=== PATIENT | female | born 1980 | race Caucasian/White ===

== ENCOUNTER 2023-03-22 15:27 | Emergency (ER) | payer BC, SELFPAY ==
[2023-03-22 15:42] VITALS: BP 158/94; PULSE 85; RESP 16; TEMP 36.1; O2SAT 100; BMI 25.8
--- NOTE | 2023-03-22 15:58 | CRLHL7_ITS ---
For Patients: As a result of the Cures Act, medical imaging exams and procedure reports are released immediately into your electronic medical record. You may view this report before your referring provider. If you have questions, please contact your health care provider. INDICATION: Back pain and hip pain TECHNIQUE: X-rays lumbar spine, four views COMPARISON: None. FINDINGS: There is normal lumbar lordosis. The vertebral body heights are maintained and in good alignment. No change in alignment between the flexion extension views. There is a well corticated osseous fragment at the anterior superior corner of the L1 vertebral body which appears chronic. Disc spaces are preserved. No acute abnormality. IMPRESSION: No acute radiographic abnormality. Dictated by Phoebe Mueller MD @ 03/22/2023 5:36:50 PM Dictated by: Phoebe Mueller MD @ 03/22/2023 17:36:59 (Electronically Signed)
--- NOTE | 2023-03-22 15:58 | CRLHL7_ITS ---
For Patients: As a result of the Cures Act, medical imaging exams and procedure reports are released immediately into your electronic medical record. You may view this report before your referring provider. If you have questions, please contact your health care provider. INDICATION: Back pain, left hip pain TECHNIQUE: X-ray left hip, two views of the single-view pelvis COMPARISON: None FINDINGS: Alignment is normal. Negative for acute fracture or dislocation. Femoral heads are well-formed. Joint spaces are preserved. Overlying soft tissues unremarkable. No radiopaque foreign body is seen. Phleboliths within the pelvis. IMPRESSION: Unremarkable radiographs of the left hip and pelvis. Dictated by Phoebe Mueller MD @ 03/22/2023 5:35:11 PM Dictated by: Phoebe Mueller MD @ 03/22/2023 17:35:21 (Electronically Signed)
--- NOTE | 2023-03-22 16:28 | ED.GENADULT ---
HPI - General Adult General Chief complaint: Back Injury/Pain Stated complaint: Back injury Time Seen by Provider: 03/22/23 15:41 Source: patient Mode of arrival: ambulatory Limitations: no limitations History of Present Illness HPI narrative: Patient is a 42-year-old female with no pertinent medical problems presenting to emergency department for back pain. She states earlier today around noon she was bending over when she felt a pop in her back. States since then she has been having no amount of pain on the left side of her back going into her left hip. She states she has been able ambulate but since been more of a shuffling gait. Denies loss of bowel or bladder control, denies saddle anesthesia, denies fevers, denies IV drug use. Patient states she is insert her thoracic spine in the past but has never hurt her lumbar spine. Does note while she was walking down steps last weeks she hurt she felt similar sensation in her left hip. She is unsure of these are related. Related Data Home Medications Medication Instructions Recorded Confirmed ivermectin 1 % topical cream applic topical 03/22/23 sertraline 100 mg tablet 100 mg PO DAILY 03/22/23 03/22/23 Previous Rx's Medication Instructions Recorded cyclobenzaprine 10 mg tablet 10 mg PO TID PRN muscle spasm #14 03/22/23 tabs Allergies Allergy/AdvReac Type Severity Reaction Status Date / Time surgical glue Allergy Intermediate Rash Uncoded 03/22/23 15:37 Review of Systems Status of ROS: Reports: 6 or more systems reviewed and unremarkable except as noted in History and below PFS PFS Social History Smoking Status: Former smoker How often do you have a drink containing alcohol: monthly or less AUDIT-C Alcohol total score: 1 Non-prescribed substance use: denies use Exam Narrative: Exam Narrative: Const: Well-nourished, Well-developed, in mild distress Eyes: PERRL, no conjunctival injection, and symmetrical lids ENMT: Atraumatic external nose and ears. Moist mucous membranes. MSK:Extremities w/o deformity, Normal Active ROM, tenderness to palpation left back throughout the paraspinal muscles. Negative straight leg test Skin: Warm, Dry. No rashes or lesions. Neuro: Normal Muscle tone, No focal neurological deficits. Psych: Awake, Alert, & Oriented x3. Appropriate mood and affect. Const: Vital Signs, click to edit/add: Vital Signs - 24 hr 03/22/23 15:42 Temperature 97.0 F L Pulse Rate [Right Pulse Oximeter] 85 Respiratory Rate 16 Blood Pressure [Ri ght Upper Arm] 158/94 H Pulse Oximetry 100 Oxygen Delivery Me thod Room Air Course Vital Signs Vital signs: Initial Vital Signs Temperature 97.0 F L 03/22/23 15:42 Temperature Source Temporal Artery Scan 03/22/23 15:42 Pulse Rate 85 03/22/23 15:42 Pulse Rhythm Regular 03/22/23 15:42 Respiratory Rate 16 03/22/23 15:42 Blood Pressure 158/94 H 03/22/23 15:42 Blood Pressure Mean 115 H 03/22/23 15:42 Blood Pressure Position Sitting 03/22/23 15:42 Pulse Oximetry 100 03/22/23 15:42 Oxygen Delivery Method Room Air 03/22/23 15:42 Vital Signs Temperature 97.0 F L 03/22/23 15:42 Pulse Rate 85 03/22/23 15:42 Respiratory Rate 16 03/22/23 15:42 Blood Pressure 158/94 H 03/22/23 15:42 Pulse Oximetry 100 03/22/23 15:42 Oxygen Delivery Method Room Air 03/22/23 15:42 Temperature 97.0 F L 03/22/23 15:42 Pulse Rate 85 03/22/23 15:42 Respiratory Rate 16 03/22/23 15:42 Blood Pressure 158/94 H 03/22/23 15:42 Pulse Oximetry 100 03/22/23 15:42 Oxygen Delivery Method Room Air 03/22/23 15:42 Medical Decision Making MDM Narrative Medical decision making narrative: Patient is a 42-year-old female presenting to emergency department for left lower back pain and hip pain. She says she heard a pop in her back while she was at work and bending over. The pain started immediately after this. She also notes she did also hurt her hip earlier last week. She denies ever having low back issues in the past but has run out her thoracic region couple times before. After pain medicine initially she said she did not want any case she took ibuprofen at home and an old muscle relaxer that was 3 years old. Her x-ray of her lumbar spine and left hip. They returned showing no concerning abnormalities. Patient had normal straight leg test making a herniated disc unlikely plus the pain is more in the paraspinal area. Pain started right after she heard the pop involve bending over and unlikely to be from a kidney stone. I do not believe she needs a CT scan at this time. She was started after pain medication and states she does not want any narcotics so Toradol was given. I spoke to her about her diagnosis of likely lumbar strain. I informed her to take Tylenol and ibuprofen for pain and use ice. She can be discharged home and she agrees with this plan Differential Diagnosis Differential Diagnosis: Muscle strain, fracture, nephrolithiasis, herniated disc Discharge Plan Discharge Clinical Impression: Strain of lumbar region Patient Disposition: Home, Self-Care Condition: Stable Instructions: Back Pain (ED) Additional Instructions: Follow-up with the primary care provider. Take Tylenol ibuprofen for pain along with the muscle relaxant prescribed. Return for new or worsening symptoms. Also use ice for pain management Prescriptions: New cyclobenzaprine 10 mg tablet 10 mg PO TID PRN (Reason: muscle spasm) Qty: 14 0RF No Action sertraline 100 mg tablet 100 mg PO DAILY ivermectin 1 % cream topical Follow Up/Referrals: Joan Mccoy PA-C [Primary Care Provider] - Stand Alone Forms: [employer] Info Instructions
[2023-03-22] MEDS: KETOROLAC 30 MG/ML inj IM (18:15)
== END 2023-03-22 18:51 | disposition home or self-care (01) ==
PROVIDERS: Emergency Provider Student in an Organized Health Care Education/Training Program; PCP Physician Assistant Medical
DX: S39.012A Strain of muscle, fascia and tendon of lower back, initial encounter (principal); X50.1XXA Overexertion from prolonged static or awkward postures, initial encounter
CPT/HCPCS: 72110; 73502; 96372; 99282; 99283; J1885

== ENCOUNTER 2024-02-16 09:41 | Outpatient (CLI) | payer BC, SELFPAY | END 2024-02-16 09:42 | disposition home or self-care (01) | PROVIDERS: PCP Physician Assistant Medical; Visit Provider Obstetrics & Gynecology | DX: N92.0 Excessive and frequent menstruation with regular cycle (principal) | CPT/HCPCS: 84146; 84439; 84443 ==

== ENCOUNTER 2024-03-16 10:40 | Outpatient (CLI) | payer BC, SELFPAY ==
--- NOTE | 2024-03-16 10:45 | CRLHL7_ITS ---
For Patients: As a result of the Century Cures Act, medical imaging exams and procedure reports are released immediately into your electronic medical record. You may view this report before your referring provider. If you have questions, please contact your health care provider. INDICATION: Excessive and frequent menstruation COMPARISON: none TECHNIQUE: 2D manjarrez scale and color Doppler images were acquired of the pelvis using a transvaginal approach as the bladder was not distended. FINDINGS: Sonographic images demonstrate a normal size and smooth outer contour of the uterus. Uterus measures 8.0 cm in length by 5.1 cm in AP diameter by 6.5 cm in transverse dimension. The myometrium has a normal uniform echotexture. 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 There is a focal nodular area of increased echotexture within the endometrium measuring 14 x 10 x 13 millimeters. This contains internal blood flow. The right ovary measures 2.2 x 1.3 x 1.6 cm in size and the left ovary measures 2.7 x 1.4 x 3.1 cm. The ovaries demonstrate normal arterial and venous blood flow on color Doppler analysis. There are no suspicious fluid collections within the cul-de-sac. IMPRESSION: Endometrial polyp appears to be present measuring 1.4 cm. Endometrial thickness 15 millimeters Dictated by Herman Ghotra MD @ 03/17/2024 7:24:05 AM (Electronically Signed)
== END 2024-03-16 10:41 | disposition home or self-care (01) ==
LOC: US 10:41
PROVIDERS: PCP Physician Assistant Medical; Visit Provider Obstetrics & Gynecology
DX: N92.0 Excessive and frequent menstruation with regular cycle (principal); N84.0 Polyp of corpus uteri; R93.89 Abnormal findings on diagnostic imaging of other specified body structures
CPT/HCPCS: 76830

== ENCOUNTER 2024-05-06 06:08 | Day surgery (SDC) | payer BC, SELFPAY ==
--- OUTSIDE RECORDS SUMMARY | 2024-05-06 06:12 | XMS_ITS | Clinical Summary ---
Author Organization [facility] Address [place], [place] [address] Care Team Providers Care Labor Specialist Name Role Phone Joan Mccoy Primary Care Provider Allergies No known active allergies Medications Medication Sig Dispensed Refills Start Date End Date Status clonazePAM (KLONOPIN) 0.5 mg tabletIndication s:Anxiety Take 1 Tablet (0.5 mg) by mouth at bedtime. 30 Tablet 04/10/2021 Active Additional Information Patient taking differently:0.5 mg OralBEDTIME PRN, Anxiety, Reported on 03/22/2024 tiZANidine (ZANAFLEX) 4 mg tabletIndication s:Acute bilateral thoracic back pain TAKE 1 TABLET(4 MG) BY MOUTH EVERY 6 HOURS NEEDED FOR MUSCLE SPASM 20 Tablet 03/26/2024 Active sertraline (ZOLOFT) 100 mg tabletIndication s:Anxiety TAKE 1 TABLET(100 MG) BY MOUTH EVERY MORNING 90 Tablet 04/20/2024 Active sertraline (ZOLOFT) 100 mg tabletIndication s:Anxiety TAKE 1 TABLET(100 MG) BY MOUTH EVERY MORNING 30 Tablet 03/21/2024 4 Discontinued Active Problems Problem Noted Date Diagnosed Date Pap smear of cervix with ASCUS, cannot exclude H GSIL 11/28/2021 Overview: 11/28/2021 ASC-H/HPV negative. 12/2021 colposcopy: suggestive of KALA I 12/2022 ASCUS/HPV negative Plan: Pap/HPV due 12/2023 Controlled substance agreement signed 03/19/2017 Overview: 02/08/[address] Maximo Butler psychiatry/hc Allergic rhinitis 05/24/2013 Major depressive disorder, single episode, unspe cified 06/18/2007 Obsessive-compulsive disorders 06/18/2007 Encounters Date Type Department Care Team Description 04/28/2024 8:15 AM CDT Preop Visit [facility] [address] [place] [address] Akosua Pradhan MD Preoperative Exam (DOS-05/06-Uterine polyp removed/[facility]-Dr Wheeler//) 04/28/2024 Travel 04/18/2024 Refill [facility] [address] [place] [address] Joan Mccoy PA Refill Request (Sertraline) 03/26/2024 Refill [facility] [address] [place] [address] Jaylin Rodriguez PA Refill Request (Tizanidine) 03/24/2024 Refill [facility] [address] [place] [address] Jaylin Rodriguez PA Refill Request (Tizanidine) 03/22/2024 1:15 PM CDT Office Visit [facility] [address] [place] [address] Jaylin Rodriguez PA Back Pain (Picked up a water bucket last Friday and her back has been hurting since) 03/22/2024 Travel 03/19/2024 Refill [facility] [address] [place] [address] Joan Mccoy PA Refill Request (Sertraline) 03/16/2024 Orders Only [facility] Scanner 1 scan: (1-Ord) [place], PELVIC TRANSVAGINAL, 03/16/2024 02/16/2024 Lab Requisition [facility] [phone] Liam, Rose Badillo MD from Last 3 Months Immunizations Name Administration Dates Next Due COVID-19 vaccine (Pfizer-Bio NTech 30mcg/0.3mL) PF, MDV 01/10/2021 Influenza A (H1N1), Inactiva teresita (Age >=3 Years) 07/05/2009 Influenza, IIV3 (Age >=3 years) 06/18/2006 Influenza, IIV4 06/08/2021,06/09/2020,10/12/2019 Tdap 04/18/2016 Family History Medical History Relation Name Comments ADD / ADHD Daughter Diabetes type I Daughter age 6 yo No Known Problems Father ADD / ADHD Mother Alcoholism Mother Drug Abuse Mother crack cocaine Cancer-breast Paternal Grandmother ADD / ADHD Son Autism Son Anesthesia Malignant Hyperthermia No Family History Blood Disease No Family History Cancer-ovarian No Family History Relation Name Status Comments Daughter Alive Father Mother Paternal Grandmother Son Alive Social History Tobacco Use Types Packs/Day Years Used Date Smoking Tobacco: Former Cigarettes Q uit: 12/07/2004 Smokeless Tobacco: Never Tobacco Cessation:Counseling Given: Yes Alcohol Use Standard Drinks/Week Comments Yes 0 (1 standard drink = 0.6 oz pur e alcohol) glass of wine weekly PHQ-2 Answer Date Recorded PHQ-2 TOTAL SCORE 0 12/24/2022 Social Connections Answer Date Recorded Frequency of Communication with Friends and Fami ly 0 03/22/2024 Alcohol Use Answer Date Recorded How often do you have a drink containing alcohol ? 2 03/22/2024 How many drinks containing a lcohol do you have on a typical day when you are drinking? 0 03/22/2024 How often do you have five or more drinks on one occasion? 0 03/22/2024 Financial Resource Strain Answer Date R ecorded Difficulty of Paying Living Expenses 3 03/22/2024 Difficulty of Paying Living Expenses Not on file 03/22/2024 Food Insecurity Answer Date Recorded Worried About Running Out of Food in the Last Ye ar 1 03/22/2024 Transportation Needs Answer Date Record ed Lack of Transportation (Medical) 1 03/22/2024 Housing Stability Answer Date Recorded Unable to Pay for Housing in the Last Year 1 03/22/2024 Sex and Gender Information Value Date Recorded Sex Assigned at Female 06/02/2023 7:28 PM CDT Gender Identity Female 06/02/2023 7:28 PM CDT Sexual Orientation Straight 06/02/2023 7: 28 PM CDT Obstetrics History Last Filed Vital Signs Vital Sign Reading Time Taken Comments Blood Pressure 117/83 04/28/2024 8:22 AM CDT Pulse 87 04/28/2024 8:22 AM CDT Temperature 36.6 ??C (97.8 ??F) 04/28/2024 8:22 AM CD T Respiratory Rate 14 06/06/2023 10:13 AM CDT Oxygen Saturation 98% 04/28/2024 8:22 AM CDT Inhaled Oxygen Concentration - - Weight 84.6 kg (186 lb 9.6 oz) 04/28/2024 8:22 A M CDT Height 172.1 cm (5' 7.75) 04/28/2024 8:22 AM CD T Body Mass Index 28.58 04/28/2024 8:22 AM CDT Plan of Treatment Health Maintenance Due Date Last Done Comments COVID-19 vaccine series (2022- season) 2023 05/18/2022, 08/16/2021, 01/10/2021, Additional history exists Mammogram for age 45-75 12/18/2023 12/18/19, 11/28/2021, 04/27/2020, Additional history exists Depression screening for age 12+ 12/25/2023 12/24/2022, 12/24/2022, 11/28/2021, Additional history exists Influenza for age 9-49 05/09/2024 , 06/09/2020, 10/12/2019, Additional history exists Pap test for age 21-65 02/15/2025 4, 02/16/2024, 12/24/2022, Additional history exists BMI (ht and wt on same day) for age 18+ 04/28/2025 04/28/2024, 12/24/2022, 11/28/2021, Additional history exists Tetanus booster 04/18/2026 04/18/2016 Lipids for age 45-75 09/23/2027 09/23/2022, 11/28/2021, 08/13/2018, Additional history exists Colonoscopy through age 75 06/06/203306/06, 06/06/2023, 06/06/2023 Tdap Completed 04/18/2016 HIV for age 15-65 Completed 12/24/2022 Hepatitis C screening for age 18-79 Completed 12/24/2022 Pneumococcal series for age 6-64 Aged Out No longer eligible based on patient's age to complete this topic Procedures Procedure Name Priority Date/Time Associated Diagnosis Comments SCAN-ULTRASOUND REPORT 03/16/2024 12:00 AM CDT LAB TRACKING EVENT Routine 02/16/2024 12 :00 PM CDT SALES VENDOR THIN PREP PAP SCREEN IMAGED Routine 02/16/2024 10:00 AM CDT HPV THIN PREP Routine 02/16/2024 10:00 AM CDT COLONOSCOPY SCREENING Routine 06/06/2023 8:45 AM CDT Screening for colon cancer LC HIV-1/O/2, 4TH GENERATION Routine 12/24/2022 9:42 AM CDT Encounter for screening for HIV LC HCV ANTIBODY RFX TO QUANT PCR Routine 12/24/2022 9:42 AM CDT Need for hepatitis C screening test XR MAMMO JULIUS BILAT SCREEN Routine 12/17/2022 8:51 AM CDT Visit for screening mammogram LC LIPID PANEL AND CHOL/HDL RATIO Routine 09/23/2022 9:00 AM PERMACULTURE CONTRACTOR Screening cholesterol level from Last 3 Months or Most Recently Relevant to Health Maintenance Results * SCAN-ULTRASOUND REPORT (03/16/2024 12:00 AM CDT) Anatomical Region Laterality Modality Other Scanner OTHER * LAB TRACKING EVENT (02/16/2024 12:00 PM CDT) Other (Other) Client Collect / Unknown 02/16/2024 12:00 PM CDT 02/16/2024 3:19 PM CDT Rose Aby Wheeler MD LAB BILL ONLY [facility] [address] [place] [address], * SALES VENDOR THIN PREP PAP SCREEN IMAGED (02/16/2024 10:00 AM CDT) Case Report Gynecologic Cytology Report ? Case: [id number] ? Authorizing Provider: ??Rose Wheeler MD ?Collected: ? 02/16/2024 1000 ? Ordering Location: ? [facility] ?Received: ?02/17/2024 1010 ? First Screen: ?Nida Blood ? Rescreen: ?Blakely, Lolita ? Pathologist: ? Janice Ward MD ? Specimen: ?SALES VENDOR ThinPrep Vial Screening, Cervical ? 02/26/2024 7:54 AM CDT [facility] INTERPRETATION/ RESULT NEGATIVE FOR INTRAEPITHELIAL LESION OR MALIGNANCY (NIL) (none) 02/26/2024 7:54 AM CDT [facility] R NON-NEOPLASTIC FINDING(S) Reactive cellular changes associated with inflammation/repa ir 02/26/2024 7:54 AM CDT [facility] SPECIMEN ADEQUACY Satisfactory for evaluation Endocervical component present Scant cellularity 02/26/2024 7:54 AM CDT [facility] HPV REQUEST HPV and PAP 02/26/2024 7:54 AM CDT [facility] Date of LMP 02/07/2024 02/26/2024 7:54 AM CDT [facility] Last Pap Date 12/24/2022 02/26/2024 7:54 AM CDT [facility] Last Pap Result ASCUS 7:54 AM CDT [facility] Abnormal Pap or [place] Bx in last 5 years Yes 02/26/2024 7:54 AM CDT [facility] Menstrual Status Perimenopausal 02/26/2024 7:54 AM CDT [facility] [place] Bx Done Today No 02/26/2024 7:54 AM T [facility] Additional Information 02/26/2024 7:54 AM CDT [facility] Comment: Interpreted at [facility] - [address], [place] [address] Automated Review Successful 02/26/2024 7:54 AM CDT [facility] Comment:Specimen processed s uccessfully by automated hip hop artist device, ThinPrep Imaging System, [employer] ANCILLARY TESTING SALES VENDOR HPV Ordered, Please see separate report 02/26/2024 7:54 AM CDT [facility] Note The pap test is a screening technique, not a diagnostic procedure. It is used primarily to screen for squamous cancers and precursor lesions. Published studies have shown that it is subject to both false negative and false positive results. The pap test should not be used as the sole means to diagnose or exclude pre-malignant and malignant lesions. 02/26/2024 7:54 AM CDT [facility] Other (Cervical) 02/16/2024 10:00 AM CDT 02/17/2024 10:10 AM CDT Rose Wheeler MD PATHOLOGY/CYTOLOGY Performing Organization Address [facility] Co de Phone Number [facility] [address] [place] [phone], * HPV HIGH RISK (02/16/2024 10:00 AM CDT) TYPE 16 Negative Negative 02/19/2024 2:39 PM CDT [facility] TYPE 18 Negative Negative 02/19/2024 2:39 PM CDT [facility] OTHER HIGH RISK TYPES Negative Negative 02/19/2024 2:39 PM CDT [facility] Other (Cervical) 02/16/2024 10:00 AM CDT 02/17/2024 10:10 AM CDT Narrative [facility] - 02/19/2024 2:39 PM CDT HPV types 16, 18, 31, 33, 35, 39, 45, 51, 52, 56, 58, 59, 66 and 68 DNA were undetectable or below the pre-set threshold. Methodology: Krystal Asad 4800 HPV Test Rose Wheeler MD MICROBIOLOGY Performing Organization Address [facility] Co de Phone Number [facility] [address] [place] [phone], [place] * COLONOSCOPY (06/06/2023 9:23 AM CDT) 06/06/2023 9:23 AM CDT Narrative Transcriptions Michael Kaplan MD - 06/06/2023 9:55 AM CDT Patient Name: Liliana Sal Procedure Date: 06/06/2023 Gender: Female Date of : 1980 Admit Type: Outpatient Procedure: Colonoscopy Proceduralist: Michael Kaplan MD , Pilar Calderon, RN (Nurse), Geneva Hdez (Nurse) Referring MD: Shelia Trujillo Indications/Pre-Op Diagnosis: Screening for colorectal malignant neoplasm, This is the patient's first colonoscopy Medications: Fentanyl 150 micrograms IV, Midazolam 4 mgIV, The level of sedation administered wasmoderate Procedure Description: The patient had risks, benefits and alternatives explained to andgave informed consent. The patient had a stable cardiopulmonary status and judged an adequate candidate for conscious sedation. The PCF-H190L [id number] was passed through the anus and advanced to the cecum, identified by appendiceal orifice and ileocecal valve. The colonoscopy was performed without difficulty. The patient toleratedthe procedure well. The quality of the bowel preparation was good. The ileocecal valve, appendiceal orifice, and rectum were photographed. Complications: No immediate complications. Estimated Blood Loss & Specimen: Estimated blood loss: none. Specimen collected - Yes and sent to Laboratory Findings: The perianal and digital rectal examinations were normal. The entire examined colon appeared normal. Impressions/Post-Op Diagnosis: - The entire examined colon is normal. - No specimens collected. Recommendation: - Patient has a contact number available for emergencies. The signsand symptoms of potential delayed complications were discussed with the patient. Return to normal activities tomorrow. Written discharge instructions were provided to the patient. - Resume previous diet. - Continue present medications. - Repeat colonoscopy in 10 years for screening purposes. Moderate Sedation: A time out was performed before the procedure. Moderate (conscious) sedation was administered by the endoscopy nurse and supervised bythe endoscopist. The following parameters were monitored: oxygensaturation, heart rate, blood pressure, EKG, CO2, respiratory rate, adequacy of pulmonary ventilation and reponse to care. Please refer to the patient's medical record flowsheets and nursing notes for moderate sedation details. Total physician intraservice time was 16 minutes. Michael Kaplan MD 06/06/2023 9:54:56 AM This report has been signed electronically. Note Initiated On: 06/06/2023 9:23 AM Procedure Code(s): --- Professional --- 23891, Colonoscopy, flexible; diagnostic, including collection of specimen(s) bybrushing or washing, when performed (separateprocedure) Diagnosis Code(s): --- Professional --- Z12.11, Encounter for screening formalignant neoplasm of colon CPT copyright 2021 [employer]. All rights reserved. The codes documented in this report are preliminary and upon curing oven attendant reviewmay be revised to meet current compliance requirements. Scope In: 9:34:37 AM Scope Withdrawal Time 0 hours 6 minutes 6 seconds Scope Out: 9:48:17 AM Michael Kaplan MD PROCEDURE ORD * LC HCV ANTIBODY RFX TO QUANT PCR (12/24/2022 9:42 AM CDT) HCV Ab Non Reactive Non Reactive 12/26/2022 2:08 PM CDT [facility] Blood BLOOD SPECIMEN / Unknown Venipuncture / Unknown 12/24/2022 9:42 AM CDT 12/24/2022 9:44 AM CDT Narrative [facility] ([facility]) - 12/26/2022 2:08 PM CDT Performed at: ??[address] ??[id number] Raw Hide Trimmer: Alfonso Brennan MD, Phone: ??[phone] [facility] Performing Organization Address City/[facility]/ZIP Co de Phone Number [facility] ([facility]) [address] [place] [address], * LC HIV-1/O/2, 4TH GENERATION (12/24/2022 9:42 AM CDT) HIV Scr 4th Gen Non Reactive Non Reactive 12/26/2022 8:37 AM CDT [facility] ([facility]) Comment: HIV Negative HIV-1/HIV-2 antibodies and HIV-1 p24 antigen were NOT detected. There is no laboratory evidence of HIV infection. Blood BLOOD SPECIMEN / Unknown Venipuncture / Unknown 12/24/2022 9:42 AM CDT 12/24/2022 9:44 AM CDT Narrative [facility] ([facility] - 12/26/2022 8:37 AM CDT Performed at: ??[address] ??[id number] Raw Hide Trimmer: Alfonso Brennan MD, Phone: ??[phone] [facility] Performing Organization Address [facility] Co de Phone Number [facility] ([facility]) [address] [place] [address], * XR MAMMO JULIUS BILAT SCREEN (12/17/2022 8:51 AM CDT) Anatomical Region Laterality Modality BREASTS, Breast Left, Breast Right Bilateral Mammography Impressions 12/17/2022 4:30 PM CDT ??There is no radiographic evidence for malignancy. ??Recommend annual mammograms. MAMMOGRAM ASSESSMENT: ??ACR 1 Negative PATIENTS: You will also receive a letter with your examination results in an easy to read format. ??If you have questions about your results, please contact your referring provider. Narrative 12/17/2022 4:30 PM CDT For Patients: As a result of the Century Cures Act, medical imaging exams and procedure reports are released immediately into your electronic medical record. You may view this report before your referring provider. If you have questions, please contact your health care provider. XR MAMMO JULIUS BILAT SCREEN [[id number]] CLINICAL HISTORY: ??This is an asymptomatic 42 y.o. patient. INDICATION FOR EXAM: Mammogram Screening. TECHNIQUE: CC & MLO views were obtained. ??This study was evaluated with the assistance of Computer-Aided Detection. Breast Tomosynthesis was used in interpretation. COMPARISON FILM: Yes 11/28/21 [facility] 04/27/20 [facility] FINDINGS: ??The breasts are heterogeneously dense, which may obscure small masses. There are no dominant masses, suspicious micro calcifications or areas of architectural distortion. Joan [facility] MAM[facility] * (ABNORMAL) LC LIPID PANEL AND CHOL/HDL RATIO (09/23/2022 9:00 AM [facility]) Cholesterol, Total 252(H) 100 - 199 mg/dL 09/27/2022 12:06 AM [facility]) Triglycerides 124 0 - 149 mg/dL 09/27/2022 12:06 AM [facility] ([facility] HDL Cholesterol 69 >39 mg/dL 12:06 AM [facility] ([facility]) VLDL Cholesterol Travis 22 5 - 40 mg/dL 09/27/2022 12:06 AM [facility] ([facility]) LDL Chol Calc (NIH) 161(H) 0 - 99 mg/dL 09/27/2022 12:06 AM [facility] ([facility]) T. Chol/HDL Ratio 3.7 0.0 - 4.4 ratio 09/27/2022 12:06 AM [facility] ([facility]) Comment: ?T. Chol/HDL Ratio ?Men ??Women ?1/2 Avg.Risk ??3.4 ?3.3 ?Avg.Risk ??5.0 ?4.4 ? 2X Avg.Risk ??9.6 ?7.1 ? 3X Avg.Risk 23.4 ?? 11.0 Blood BLOOD SPECIMEN / Unknown Venipuncture / Unknown 09/23/2022 9:00 AM PERMACULTURE CONTRACTOR 09/23/2022 9:00 AM PERMACULTURE CONTRACTOR Narrative [facility] ([facility]) - 09/27/2022 12:06 AM PERMACULTURE CONTRACTOR Performed at: ??01 - [facility] [place] [address] ??[id number] Raw Hide Trimmer: Alfonso Brennan MD, Phone: ??[phone] Joan [facility]ED[facility] SEND OUTS [facility] ([facility]) [address] [place] [address], from Last 3 Months or Most Recently Relevant to Health Maintenance Care Teams Labor Specialist Relationship Specialty Start Date End Date Joan Mccoy PA [address] [place], [place] [id number] PCP - General Family Practice 01/18/13
--- OUTSIDE RECORDS SUMMARY | 2024-05-06 06:12 | XMS_ITS | Clinical Summary ---
Author Organization [facility] Address [address] [place] [address] Care Team Providers Care Family Consumer Science Fcs Teacher Name Role Phone Pcp, Pt Declines Primary Care Provider [phone] Source Comments You are receiving this document as you are listed as the primary care provider,follow-up provider, or the patient has been referred to you for consultation.This is in compliance with the Medicare and[facility] EHR Incentive Program,which states Providers who transition their patient to another setting of careor provider of care or refers their patient to another provider of care shouldprovide summary care record for each transition of care or referral. [facility] Top-Level Domain Allergies No known active allergies Medications Medication Sig Dispensed Refills Start Date End Date Status sertraline (ZOLOFT) 50 MG tablet Take 50 mg by mouth daily. Active Active Problems No known active problems Social History Tobacco Use Types Packs/Day Years Used Date Smoking Tobacco: Former Cigarettes Q uit: 08/01/2005 Smokeless Tobacco: Never Tobacco Cessation:Counseling Given: No Alcohol Use Standard Drinks/Week Comments Yes 0 (1 standard drink = 0.6 oz pur e alcohol) 1 drink per week on average Sex and Gender Information Value Date Recorded Sex Assigned at Not on file Gender Identity Not on file Sexual Orientation Not on file Last Filed Vital Signs Vital Sign Reading Time Taken Comments Blood Pressure - - Pulse - - Temperature 37 ??C (98.6 ??F) 08/01/2017 4:29 PM BASEBALL GLOVE SHAPER Respiratory Rate - - Oxygen Saturation - - Inhaled Oxygen Concentration - - Weight 70.3 kg (155 lb) 08/01/2017 4:29 PM B[employer]BALL GLOVE SHAPER Height 172.7 cm (5' 8) 08/01/2017 4:29 PM B[employer]BALL GLOVE SHAPER Body Mass Index 23.57 08/01/2017 4:29 PM B[employer]BALL GLOVE SHAPER Plan of Treatment Health Maintenance Due Date Last Done Comments Cervical Cancer Screening Due 1980 Colon Cancer Screening Plan Due 1980 Hep C Screening (Preventive Services) 1980 Mammogram 1980 HIV Screening (Preventive Services) 1994 Adult Preventive Visit 1996 DTaP/Tdap/Td (1 - Tdap) 1997 HepB (1) 1997 COVID-19 Vaccine (1 - 2022-2 4 season) 2023 Cholesterol 2023 Influenza (#1) 2024 Zoster/Shingles (1 of 2) 2028 HPV Vaccine Aged Out No longer eligi ble based on patient's age to complete this topic HepA Aged Out No longer eligi ble based on patient's age to complete this topic Hib Aged Out No longer eligi ble based on patient's age to complete this topic IPV (Polio) Aged Out No longer eligi ble based on patient's age to complete this topic MCV4 Aged Out No longer eligi ble based on patient's age to complete this topic Pneumococcal Aged Out No longer eligi ble based on patient's age to complete this topic Care Teams Family Consumer Science Fcs Teacher Relationship Specialty Start Date End Date Pcp, [place] [address] PCP - General 08/01/17
[2024-05-06 06:36] VITALS: BP 140/96; PULSE 70; RESP 16; TEMP 36.8; O2SAT 97; BMI 29.2
[2024-05-06] MEDS: SODIUM CHLORIDE 0.9 % (FLUSH) 10 ML SYRINGE IVF (06:45)
[2024-05-06] MEDS: LACTATED RINGERS 1000 ML 1,000 ML 100 ML IV (06:45)
[2024-05-06 06:57] LABS: Hemoglobin* 12.1 gm/dL (12.0-16.0)
[2024-05-06 06:57] LABS: Ur HCG Qualitative* Negative (Negative)
--- NOTE | 2024-05-06 07:34 | W.PM.H&PU ---
History & Physical Update History & Physical Update H&P Reviewed and patient assessed: The following changes are noted below H&P Updates: LMP last week. [place]. Lasting for 4 days. Heavy for 2-3 days. This is a change from her normal menstrual cycles which last for 7 days but not as heavy.
[2024-05-06] MEDS: SILVER NITRATE APPLICATOR 1 EACH STICK..EA. TOPICAL (08:30)
[2024-05-06 08:46] VITALS: BP 133/77; PULSE 81; RESP 16; TEMP 36; O2SAT 99
--- NOTE | 2024-05-06 08:51 | W.ANESCHARGE ---
Anesthesia Charges Start Date/Time Anesthesia Start Date: 05/06/24 Anesthesia Start Time: 07:32 Stop Date/Time Anesthesia Stop Date: 05/06/24 Anesthesia Stop Time: 08:48
[2024-05-06 09:00] VITALS: BP 132/84; PULSE 65; RESP 16; O2SAT 99
--- NOTE | 2024-05-06 09:02 | W.PM.GYNPROC ---
Procedure Note Time Seen by Provider: 09:02 Date of procedure: 05/06/24 Will [facility] bill your pro fee for this procedure?: Yes Pre-op diagnosis: 1. Abnormal uterine bleeding, polyps Post-op diagnosis: same Procedure: Ultrasound-guided hysteroscopy, dilation and curettage, polypectomy, and Mirena IUD insertion Anesthesia: MAC and local ( Paracervical block with lidocaine with epinephrine ( 10 mL) ) Complications: none Surgeon: Rose Wheeler MD Estimated blood loss (mL): 10 IV fluids (mL): 700 Urine Output (mL): 20 Pathology: specimen obtained, sent to pathology ( endometrial curetting/polyps) Condition: stable Disposition: same day Findings: Exam under anesthesia: Mons normal, clitoris normal, urethral meatus normal. Labia minora and majora normal in appearance bilaterally. Perineum and anus normal appearance. Vaginal introitus normal appearance. Vaginal pink and well rugated with scant white discharge. Cervix pink and without lesion. Bimanual exam reveals uterus to be soft, nontender, mobile, anteverted, of normal size and texture. No palpable adnexal masses or tenderness. On hysteroscopy: Normal bilateral tubal ostia. Numerous endometrial polyps noted inside the entirety of the uterine cavity, Most prominent being posterior polyp. Procedure Description: Procedure: Liliana was taken to the operating operating room where conscious sedation was found to be adequate. The patient was placed on in the dorsal lithotomy position and an exam under anesthesia was performed with findings stated above. She was then prepped and draped in a normal sterile manner. Bladder was emptied with straight catheterization. A bivalve speculum was placed in the vagina. The cervix appears multiparous. Otherwise no abnormalities. The paracervical block was placed using 1% lidoscaine with epi, 5 mL was injected at the 4 and 8 o'clock positions on the cervix. The anterior lip of the cervix was grasped with a long tenaculum clamp. The cervix dilated to Hegar 6 easily. The uterus sounded to 8 cm. The Truclear hysteroscope was advanced into the cervical canal. There was difficulty with entry with the hysteroscope into the uterus due to the straight angle of the hysteroscope. The tenaculum was removed from the anterior lip of the cervix and placed on the posterior lip of the cervix to straighten out her uterine angle. Dr. Garcias provided ultrasound guidance during this time. The TruClear hysteroscope was advanced easily into the uterus with ultrasound guidance. A diagnostic hysteroscopy was performed with normal saline as the insufflation medium. Findings are stated above. The Truclear incisor was then advanced through the camera. The curettage and was performed with the soft tissue incisor over. The incisor was then removed. The endometrial cavity appeared normal. Attention was then turned towards Mirena IUD placement. The IUD is loaded into the insertion tube, inserted to the sounded depth and under ultrasound guidance, and the IUD is deployed. Insertion tube was removed. Strings are trimmed to 3 cm. There were no complications with insertion. Hysteroscope was advanced one last time to ensure intrauterine IUD position. Appropriate position noted. The hysteroscope, Tenaculum clamp and speculum were removed from the vaginal canal. Saline deficit at the end of the procedure 180 mL. Total saline used 2180 mL. Silver nitrate was used for hemostasis at the tenaculum sites. The patient tolerated the procedure well. Sponge, lap and instrument counts were correct x2 at the end of the procedure. The patient was taken to the recovery area in stable condition.
--- NOTE | 2024-05-06 09:10 | W.ANESCHARGE ---
Anesthesia Charges Start Date/Time Anesthesia Start Date: 05/06/24 Anesthesia Start Time: 07:32 Stop Date/Time Anesthesia Stop Date: 05/06/24 Anesthesia Stop Time: 08:48
[2024-05-06 09:15] VITALS: BP 123/83; PULSE 63; RESP 16; O2SAT 99
[2024-05-06 09:30] VITALS: BP 114/80; PULSE 84; RESP 20; TEMP 36.7; O2SAT 97
[2024-05-06 10:00] VITALS: BP 139/87; PULSE 71; RESP 20; O2SAT 97
== END 2024-05-06 10:14 | disposition home or self-care (01) ==
LOC: OR 06:10
PROVIDERS: PCP Physician Assistant Medical; Visit Provider Obstetrics & Gynecology
PROC: 0UDB8ZZ Extraction of Endometrium, Via Natural or Artificial Opening Endoscopic (ICD-10-PCS; CPT 58558; principal; 2024-05-06 07:15)
DX: N93.8 Other specified abnormal uterine and vaginal bleeding (principal); N84.0 Polyp of corpus uteri
CPT/HCPCS: 58558; 58300; 00952; 36415; 76998; 81025; 85018; 86850; 86900; 86901; 88305; A9270; C1782; J1100; J1200; J1885; J2250; J2405; J2704; J3010; J3490; J7120; J7298

== ENCOUNTER 2024-05-25 09:15 | Outpatient (CLI) | payer BC, SELFPAY ==
--- OUTSIDE RECORDS SUMMARY | 2024-05-25 09:17 | XMS_ITS | Clinical Summary ---
Author Organization [facility] Address [address] [place] [address] Care Team Providers Care National Recruiter Name Role Phone Pcp, Pt Declines Primary Care Provider [phone] Source Comments You are receiving this document as you are listed as the primary care provider,follow-up provider, or the patient has been referred to you for consultation.This is in compliance with the Medicare and[facility] EHR Incentive Program,which states Providers who transition their patient to another setting of careor provider of care or refers their patient to another provider of care shouldprovide summary care record for each transition of care or referral. [facility] Allergies No known active allergies Medications Medication [...] 37 ??C (98.6 ??F) 08/01/2017 4:29 PM WIND TUNNEL MECHANIC Respiratory Rate - - Oxygen Saturation - - Inhaled Oxygen Concentration - - Weight 70.3 kg (155 lb) 08/01/2017 4:29 PM WIND TUNNEL MECHANIC Height 172.7 cm (5' 8) 08/01/2017 4:29 PM WIND TUNNEL MECHANIC Body Mass Index 23.57 08/01/2017 4:29 PM WIND TUNNEL MECHANIC Plan of Treatment Health Maintenance Due Date Last Done Comments Cervical Cancer Screening Due 1978 Colon Cancer Screening Plan Due 1978 Hep C Screening (Preventive Services) 1978 Mammogram 1978 HIV Screening (Preventive Services) 1994 Adult Preventive Visit 1996 DTaP/Tdap/Td (1 - Tdap) 1997 HepB (1) 1997 Cholesterol 2023 COVID-19 Vaccine (1 - 2023-2 5 season) 2024 Influenza (#1) 2024 Zoster/Shingles (1 of 2) [...] age to complete this topic Care Teams National Recruiter Relationship Specialty Start Date End Date Pcp, [place] [address] PCP - General 08/01/17
--- OUTSIDE RECORDS SUMMARY | 2024-05-25 09:17 | XMS_ITS | Clinical Summary ---
Author Organization [employer] [facility] Address [place], [place] [address] Care Team Providers Care Chief Medical Physicist Name Role Phone Joan Mccoy Primary Care Provider Allergies No known active allergies Medications Medication Sig Dispensed Refills Start Date End Date Status clonazePAM (KLONOPIN) 0.5 mg tabletIndications:A nxiety Take 1 Tablet (0.5 mg) by mouth at bedtime. 30 Tablet 04/10/2021 Active Additional Information Patient taking differently:0.5 mg OralBEDTIME PRN, Anxiety, Reported on 03/22/2024 tiZANidine (ZANAFLEX) 4 mg tabletIndications:A cute bilateral thoracic back pain TAKE 1 TABLET(4 MG) BY MOUTH EVERY 6 HOURS NEEDED FOR MUSCLE SPASM 20 Tablet 03/26/2024 Active sertraline (ZOLOFT) 100 mg tabletIndications:A nxiety TAKE 1 TABLET(100 MG) BY MOUTH EVERY MORNING 90 Tablet 04/20/2024 Active Active Problems Problem Noted Date Diagnosed Date Pap smear of cervix with ASCUS, cannot exclude H GSIL 11/28/2021 Overview (01/27/2023): 11/28/2021 ASC-H/HPV negative. 12/2021 colposcopy: suggestive of KALA I 12/2022 ASCUS/HPV negative Plan: Pap/HPV due 12/2023 Controlled substance agreement signed 03/19/2017 Overview (03/19/2017): 02/08/[address] Maximo Butler psychiatry/ Allergic rhinitis 05/24/2013 Major depressive disorder, single episode, unspe cified 06/18/2007 Obsessive-compulsive disorders 06/18/2007 Encounters Date Type Department Care Team Description 05/20/2024 9:00 AM CDT Ancillary Procedure [facility] [address] [place] [id number] Arrived 05/20/2024 Travel 05/06/2024 Orders Only [facility] Scanner 1 scan: (1-Ord) [place], [place] GUIDED HYSTEROSCOPY,DILATIO N andCURETTE,POLYPECCT JACQUELINE andMIREAN IUD INSERTION, 05/06/2024 05/06/2024 Lab Requisition [facility] [phone] Rose Wheeler MD 04/28/2024 8:15 AM CDT Preop Visit [address] [address] Akosua Pradhan MD Preoperative Exam (DOS-05/06-Uterine polyp removed/[facility]-Dr Wheeler//) 04/28/2024 Travel 04/18/[address] [address] Joan Mccoy PA Refill Request (Sertraline) 03/26/[address] [address] Jaylin Rodriguez PA Refill Request (Tizanidine) 03/24/[address] [address] Jaylin Rodriguez PA Refill Request (Tizanidine) 03/22/2024 1:15 PM CDT Office Visit [address] [address] Jaylin Rodriguez PA Back Pain (Picked up a water bucket last Friday and her back has been hurting since) 03/22/2024 Travel 03/19/[address] [address] Joan Mccoy PA Refill Request (Sertraline) 03/16/2024 Orders Only [facility] Scanner 1 scan: (1-Ord) [place], PELVIC TRANSVAGINAL, 03/16/2024 from Last 3 Months Immunizations Name Administration Dates Next Due COVID-19 vaccine ([employer] 30mcg/0.3mL) PF, MDV 01/10/2021 Influenza A [...] 04/28/2024 8:22 AM CDT Plan of Treatment Upcoming Encounters Date Type Department Care Team (Late st Contact Info) Description 06/08/2024 7:50 AM CDT Office Visit [facility] [address] [place] [address] Joan Mccoy PA [address] [place] [address] Health Maintenance Due Date Last Done Comments Depression screening for age 12+ 12/25/2023 12/24/2022, 12/24/2022, 11/28/2021, Additional history exists COVID-19 vaccine series (2022- season) 2024 05/18/2022, 08/16/2021, 01/10/2021, Additional history exists Influenza for age 9-49 05/09/2024 1, 06/09/2020, 10/12/2019, Additional history exists Pap test for age 21-65 02/15/2025 4, 02/16/2024, 12/24/2022, Additional history exists BMI (ht and wt on same day) for age 18+ 04/28/2025 04/28/2024, 12/24/2022, 11/28/2021, Additional history exists Mammogram for age 45-75 05/20/2025 05/20/20 24, 12/17/2022, 11/28/2021, Additional history exists Tetanus booster 04/18/2026 [...] Procedure Name Priority Date/Time Associated Diagnosis Comments XR MAMMO JULIUS BILAT SCREEN Routine 05/20/2024 9:20 AM CDT Encounter for screening mammogram for malignant neoplasm of breast LAB TRACKING EVENT Routine 05/06/2024 8: 37 AM CDT PATH TISSUE EXAM Routine 05/06/2024 8:37 AM CDT SCAN-OPERATIVE/PROCE DURE REPORT 05/06/2024 12:00 AM CDT SCAN-ULTRASOUND REPORT 03/16/2024 12:00 AM CDT HPV HIGH RISK Routine 02/16/2024 10:00 AM CDT COLONOSCOPY SCREENING Routine 06/06/2023 8:45 AM CDT Screening for colon cancer LC HIV-1/O/2, 4TH GENERATION Routine 12/24/2022 9:42 AM CDT Encounter for screening for HIV LC HCV ANTIBODY RFX TO QUANT PCR Routine 12/24/2022 9:42 AM CDT Need for hepatitis C screening test LC LIPID PANEL AND CHOL/HDL RATIO Routine 09/23/2022 9:00 AM DIE FORGER Screening cholesterol level from Last 3 Months or Most Recently Relevant to Health Maintenance Results * XR MAMMO JULIUS BILAT SCREEN (05/20/2024 9:20 AM CDT) Anatomical Region Laterality Modality BREASTS, Breast Left, Breast Right Bilateral Mammography Impressions 05/20/2024 2:58 PM CDT ??There is no radiographic evidence for malignancy. ??Recommend annual mammograms. MAMMOGRAM ASSESSMENT: ??ACR 1 Negative PATIENTS: You will also receive a letter with your examination results in an easy to read format. ??If you have questions about your results, please contact your referring provider. Narrative 05/20/2024 2:58 PM CDT For Patients: As a result of the Cures Act, medical imaging exams and procedure reports are released immediately into your electronic medical record. You may view this report before your referring provider. If you have questions, please contact your health care provider. XR MAMMO JULIUS BILAT SCREEN [[id number]] CLINICAL HISTORY: ??This is an asymptomatic 43 y.o. patient. INDICATION FOR EXAM: Mammogram Screening. TECHNIQUE: CC & MLO views were obtained. ??This study was evaluated with the assistance of Computer-Aided Detection. Breast Tomosynthesis was used in interpretation. COMPARISON FILM: Yes [facility]21 [facility] FINDINGS: ??The breasts are heterogeneously dense, which may obscure small masses. There are no dominant masses, suspicious micro calcifications or areas of architectural distortion. Joan OJEDA MAMMO * LAB TRACKING EVENT (05/06/2024 8:37 AM CDT) Other (Other) Client Collect / Unknown 05/06/2024 8:37 AM CDT 05/06/2024 1:34 PM CDT Rose Wheeler MD LAB BILL ONLY [facility] [address] [place] [address], * PATH TISSUE EXAM (05/06/2024 8:37 AM CDT) Case Report Pathology Report ?Case: [id number] ? Authorizing Provider: ??Rose Wheeler MD ?Collected: ? 05/06/2024 0837 ? Ordering Location: ? [facility] ?Received: ?05/06/2024 1511 ? Pathologist: ? Janice Ward MD ? Specimen: ?Endometrial Curettings ? 05/11/2024 10:29 AM CDT [facility] Final Diagnosis A) ENDOMETRIUM, CURETTAGE AND POLYPECTOMY: 1. Fragments of benign endometrial polyp(s) 2. Background proliferative endometrium 3. Negative for atypia and malignancy 05/11/2024 10:29 AM CDT [facility] Clinical Information Abnormal uterine bleeding, polyps. Curettage and polypectomy. 05/11/2024 10:29 AM CDT [facility] Gross Description A) Received in formalin, labeled with the patient's name and endometrial curettings and polyps, is a 3.0 x 2.7 x 0.2 cm aggregate of pink-suarez mucosa admixed with clotted blood and mucous. The specimen is entirely submitted in 1 cassette. EVM 05/06/2024 05/11/2024 10:29 AM CDT [facility] Microscopic Description The final diagnosis is based on microscopic examination of appropriate sections of all specimens. 05/11/2024 10:29 AM CDT [facility] Additional Information Interpreted at [facility] - [address] [place] [address]. [facility] [address] [address] 05/11/2024 10:29 AM CDT [facility] Other (Endometrial Curettings) 05/06/2024 8:37 AM CDT 05/06/2024 3:11 PM CDT Rose Wheeler MD PATHOLOGY/CYTOLOGY [facility] [address] [place] [address], * SCAN-OPERATIVE/PROCEDURE REPORT (05/06/2024 12:00 AM CDT) Scanner OTHER * SCAN-ULTRASOUND REPORT (03/16/2024 12:00 AM CDT) Anatomical Region Laterality Modality Other Scanner OTHER * HPV HIGH RISK (02/16/2024 10:00 AM CDT) TYPE 16 Negative Negative 02/19/2024 2:39 PM CDT [facility] TYPE 18 Negative Negative 02/19/2024 2:39 PM CDT [facility] OTHER HIGH RISK TYPES Negative Negative 02/19/2024 2:39 PM CDT [facility] Other (Cervical) 02/16/2024 10:00 AM CDT 02/17/2024 10:10 AM CDT Narrative [facility] - 02/19/2024 2:39 PM CDT HPV types 16, 18, 31, 33, 35, 39, 45, 51, 52, 56, 58, 59, 66 and 68 DNA were undetectable or below the pre-set threshold. Methodology: Krystal Asad 4800 HPV Test Rose Wheeler MD MICROBIOLOGY [facility] [address] [place] [address], * COLONOSCOPY (06/06/2023 9:23 AM CDT) 06/06/2023 [...] adequate candidate for conscious sedation. The PCF-H190L [id number] was passed through the anus and advanced [...] 9:23 AM Procedure Code(s): --- Professional --- 42621, Colonoscopy, flexible; diagnostic, including collection of specimen(s) bybrushing or washing, when performed (separateprocedure) Diagnosis Code(s): --- Professional --- Z12.11, Encounter for screening formalignant neoplasm of colon CPT copyright 2021 [employer]. All rights reserved. The codes documented in this report are preliminary and upon board setter reviewmay be revised to meet current compliance requirements. Scope In: 9:34:37 AM Scope Withdrawal Time 0 hours 6 minutes 6 seconds Scope Out: 9:48:17 AM Michael Kaplan MD PROCEDURE ORD * LC HCV ANTIBODY RFX TO QUANT PCR (12/24/2022 9:42 AM CDT) HCV Ab Non Reactive Non Reactive 12/26/2022 2:08 PM CDT [facility]) Blood BLOOD SPECIMEN / Unknown Venipuncture / Unknown 12/24/2022 9:42 AM CDT 12/24/2022 9:44 AM CDT Narrative [facility]) - 12/26/2022 2:08 PM CDT Performed at: ??[address] - [address] ??[id number] Store Stock Associate: Alfonso Brennan MD, Phone: ??[phone] Shelia OJEDA LABORATORY [facility] ([facility]) [address] [place] [address], * LC HIV-1/O/2, 4TH GENERATION (12/24/2022 9:42 AM CDT) HIV Scr 4th Gen Non Reactive Non Reactive 12/26/2022 8:37 AM CDT [facility] ([facility]) Comment: HIV Negative HIV-1/HIV-2 antibodies and HIV-1 p24 antigen were NOT detected. There is no laboratory evidence of HIV infection. Blood BLOOD SPECIMEN / Unknown Venipuncture / Unknown 12/24/2022 9:42 AM CDT 12/24/2022 9:44 AM CDT Narrative [facility] ([facility]) - 12/26/2022 8:37 AM CDT Performed at: ??01 - [facility] [place], [place] ??[id number] Store Stock Associate: Alfonso Brennan MD, Phone: ??[phone] Shelia OJEDA LABORATORY [facility] ([facility]) [address] [place] [address], * (ABNORMAL) LC LIPID PANEL AND CHOL/HDL RATIO (09/23/2022 9:00 AM DIE FORGER) [facility] Cholesterol, Total 252(H) 100 - 199 mg/dL 09/27/2022 12:06 AM [facility] ([facility]) Triglycerides 124 0 - 149 mg/dL 09/27/2022 12:06 AM [facility] ([facility]) HDL Cholesterol 69 >39 mg/dL 12:06 AM [facility] ([facility]) VLDL Cholesterol Travis 22 5 - 40 mg/dL 09/27/2022 12:06 AM [facility] ([facility]) LDL Chol Calc (NIH) 161(H) 0 - 99 mg/dL 09/27/2022 12:06 AM [facility] ([facility]) T. Chol/HDL Ratio 3.7 0.0 - 4.4 ratio 09/27/2022 12:06 AM [facility] ([facility]) Comment: ?T. Chol/HDL Ratio ?Men ??Women ?1/2 Avg.Risk ??3.4 ?3.3 ?Avg.Risk ??5.0 ?4.4 ? 2X Avg.Risk ??9.6 ?7.1 ? 3X Avg.Risk 23.4 ?? 11.0 Blood BLOOD SPECIMEN / Unknown Venipuncture / Unknown 09/23/2022 9:00 AM DIE FORGER 09/23/2022 9:00 AM DIE FORGER Narrative [facility] - 09/27/2022 12:06 AM DIE FORGER Performed at: ??01 - [facility] [employer] [address] ??[id number] Store Stock Associate: Alfonso Brennan MD, Phone: ??[phone] Joan OJEDA [facility]S [facility] [address] [place] [address], from Last 3 Months or Most Recently Relevant to Health Maintenance Care Teams Chief Medical Physicist Relationship Specialty Start Date End Date Joan Mccoy PA [address] [place] [address] PCP - General Family Practice 01/18/13
== END 2024-05-25 09:16 | disposition home or self-care (01) ==
LOC: NFLDREF 09:16
PROVIDERS: PCP Physician Assistant Medical; Visit Provider Obstetrics & Gynecology
DX: R53.83 Other fatigue (principal)
CPT/HCPCS: 84443

== ENCOUNTER 2024-09-20 06:40 | Day surgery (SDC) | payer BC, SELFPAY ==
[2024-09-20] VITALS (20 sets, daily range): BP systolic 115–149; BP diastolic 78–95; PULSE 63–89; RESP 11–16; TEMP 36.3–36.7; O2SAT 93–97; BMI 28.8
--- OUTSIDE RECORDS SUMMARY | 2024-09-20 06:44 | XMS_ITS | Clinical Summary ---
Author Organization [facility] Address [address] [place] [address] Care Team Providers Care Precinct I Police Sergeant Name Role Phone Pcp, Pt Declines Primary Care Provider [phone] Source Comments You are receiving this document as you are listed as the primary care provider,follow-up provider, or the patient has been referred to you for consultation.This is in compliance with the Medicare and[facility] EHR Incentive Program,which states Providers who transition their patient to another setting of careor provider of care or refers their patient to another provider of care shouldprovide summary care record for each transition of care or referral. [facility] Allergies No known active allergies Medications Medication [...] - - Pulse - - Temperature 37 C (98.6 F) 08/01/2017 4:29 PM RN ELIGIBILITY Respiratory Rate - - Oxygen Saturation - - Inhaled Oxygen Concentration - - Weight 70.3 kg (155 lb) 08/01/2017 4:29 PM RN ELIGIBILITY Height 172.7 cm (5' 8) 08/01/2017 4:29 PM RN ELIGIBILITY Body Mass Index 23.57 08/01/2017 4:29 PM RN ELIGIBILITY Plan of Treatment Health Maintenance Due Date [...] (#1) 2024 Zoster/Shingles (1 of 2) 2028 HepA Aged Out No longer eligi ble [...] age to complete this topic Care Teams Precinct I Police Sergeant Relationship Specialty Start Date End Date Pcp, [place] [address] PCP - General 08/01/17
--- OUTSIDE RECORDS SUMMARY | 2024-09-20 06:44 | XMS_ITS | Continuity of Care Document ---
Author Name [facility]IN User [facility] Address Unknown Organization Unknown Address Unknown Procedures FILTER APPLIED:Only known Procedures with Onset Date within the last 5 years Procedure Date Procedure Provider Additional Inform ation Status X-RAY EXAM L-2 SPINE 4/>VWS (16835) Completed EMERGENCY DEPT VISIT LOW MDM (29597) Completed THER/PROPH/DIAG INJ SC/IM (21729) Completed X-RAY EXAM HIP UNI 2-3 VIEWS (41411) Completed Encounters FILTER APPLIED:Only known Encounters with Admission Date within the last 5 years Encounter Location Admission Discharge Billing Code Agriculture Mechanic A ttender Emergency Jaxon vital
--- OUTSIDE RECORDS SUMMARY | 2024-09-20 06:44 | XMS_ITS | Clinical Summary ---
Author Organization [facility] Address [place], [place] [address] Care Team Providers Care Rider Ticket Worker Name Role Phone Joan Mccoy Primary Care Provider Allergies No known active allergies Medications clonazePAM (KLONOPIN) 0.5 mg tabletIndicatio ns:Anxiety Take 1 Tablet (0.5 mg) by mouth at bedtime. 30 Tablet 04/10/20 21 Active Additional Information Patient taking differently:0.5 mg OralBEDTIME PRN, Anxiety, Reported on 09/10/2024 tiZANidine (ZANAFLEX) 4 mg tabletIndicatio ns:Acute bilateral thoracic back pain TAKE 1 TABLET(4 MG) BY MOUTH EVERY 6 HOURS NEEDED FOR MUSCLE SPASM 20 Tablet 03/26/20 24 Active sertraline (ZOLOFT) 100 mg tabletIndicatio ns:Anxiety TAKE 1 TABLET(100 MG) BY MOUTH EVERY MORNING 90 Tablet 1 07/26/20 24 Active levothyroxine (SYNTHROID) 50 mcg tabletIndicatio ns:Hypothyroidi sm (acquired) Take 1 Tablet (50 mcg) by mouth before breakfast. 90 Tablet 08/02/20 24 Active SEMIWEEKLY patch estradiol 0.05 mg/24 hr SEMIWEEKLY transdermal patch 1 PATCH TRANSDERMALLY TWICE A WEEK. APPLY 1 PATCH FOR 3 DAYS ALTERNATING WITH 1 PATCH FOR 4 DAYS EACH WEEK FOR 3 WEEKS PER 4-WEEK CYCLE 08/20/20 24 Active metroNIDAZOLE (METROCREAM) 0.75 % cream APPLY THIN LAYER TOPICALLY TO FACE 1 TO 2 TIMES DAILY 08/17/20 24 Active azelaic acid (FINACEA) 15 % gel APPLY THIN LAYER TOPICALLY TO THE AFFECTED AREA EVERY NIGHT. FOLLOW WITH MOISTURIZER 08/17/20 Active estradioL (ESTRACE) 0.5 mg tablet Take 0.5 mg by mouth once daily. 05/25/20 24 025 Discontin ued(*Carmen ent states no longer taking) Active Problems Problem Noted Date Diagnosed Date Pap smear of cervix with ASCUS, cannot exclude H GSIL 11/28/2021 Overview (01/27/2023): 11/28/2021 ASC-H/HPV negative. 12/2021 colposcopy: suggestive of KALA I 12/2022 ASCUS/HPV negative Plan: Pap/HPV due 12/2023 Controlled substance agreement signed 03/19/2017 Overview (03/19/2017): 02/08/[address] Maximo Butler psychiatry/hc Allergic rhinitis 05/24/2013 Major depressive disorder, single episode, unspe cified 06/18/2007 Obsessive-compulsive disorders 06/18/2007 Encounters Date Type Department Care Team Description 09/10/2024 7:30 AM EDGE BURNISHER Office Visit [facility] [address] [place] [address] Joan Mccoy PA Preoperative Exam (R shoulder) 09/10/2024 Travel 07/23/2024 Refill [facility] [address] [facility] [place] [address] Joan Mccoy PA Refill Request (Sertraline) 07/17/2024 Orders Only [facility] Scanner 1 scan: (1-Ord) POLLY KHAN XT, 07/17/2024 07/13/2024 11:45 AM EDGE BURNISHER Office Visit [address] [place] [address] 07/13/2024 11:10 AM EDGE BURNISHER Office Visit [facility] [address] [place] [address] Joan Mccoy PA Blood Pressure (Have had some elevated BP readings - wondering if all this has to do with the estrogen she started not long ago); Palpitations (All day x 5-6 days. Some SOB, no pains) 07/13/2024 Travel from Last 3 Months Immunizations Name Administration Dates Next Due COVID-19 vaccine ([employer] NTCiviQ 30mcg/0.3mL) PF, MDV 01/10/2021 Influenza A (H1N1), [...] pur e alcohol) glass of wine weekly [facility] Utilities Answer Date Recorded Do you have trouble paying f or utilities (for example, heat, electricity, water, phone)? Yes 03/22/2024 PHQ-2 Answer Date Recorded PHQ-2 TOTAL SCORE 0 12/24/2022 Social Connections Answer Date Recorded Do you often feel lonely or isolated from those around you? 0 03/22/2024 Alcohol Use Answer Date Recorded [...] file 03/22/2024 Food Insecurity Answer Date Recorded Do you worry your food will run out before you are able to buy more? 1 03/22/2024 Transportation Needs Answer Date Record ed Does lack of transportation keep you from medica l appointments? 1 03/22/2024 Does lack of transportation keep you from work, meetings or getting things that you need? 1 03/22/2024 Housing Stability Answer Date Recorded What is your housing situation today? 1 03/22/2024 Comments No Sex and Gender Information Value Date Recorded Sex Assigned at Female 06/02/2023 7:28 PM CDT Legal Sex Female 5:47 AM EDGE BURNISHER Gender Identity Female 06/02/2023 7:28 PM CDT Sexual Orientation Straight 06/02/2023 7: 28 PM CDT Obstetrics History Last Filed Vital Signs Vital Sign Reading Time Taken Comments Blood Pressure 122/83 09/10/2024 7:45 AM EDGE BURNISHER Pulse 73 09/10/2024 7:45 AM EDGE BURNISHER Temperature 36.6 C (97.8 F) 04/28/2024 8:22 AM CDT Respiratory Rate 14 06/06/2023 10:13 AM CDT Oxygen Saturation 98% 09/10/2024 7:45 AM EDGE BURNISHER Inhaled Oxygen Concentration - - Weight 86.2 kg (190 lb) 09/10/2024 7:45 AM EDGE BURNISHER Height 172.1 cm (5' 7.75) 04/28/2024 8:22 AM CD T Body Mass Index 29.1 04/28/2024 8:22 AM CDT Plan of Treatment Health Maintenance Due Date Last Done Comments Depression screening for age 12+ 12/25/2023 12/24/2022, 12/24/2022, 11/28/2021, Additional history exists COVID-19 vaccine series ( season) 2024 05/18/2022, 08/16/2021, 01/10/2021, Additional history [...] 18-79 Completed 12/24/2022 Pneumococcal series for age 6-49 Aged Out No longer eligible based on patient's age to complete this topic Procedures Procedure Name Priority Date/Time Associated Diagnosis Comments TSH Routine 09/10/2024 8:07 AM EDGE BURNISHER Hypothyroidism (acquired) SCAN-EVENT MONITOR 07/17/2024 12 :00 AM EDGE BURNISHER T4,FREE Routine 07/13/2024 11:48 AM EDGE BURNISHER Palpitations TSH Routine 07/13/2024 11:48 AM EDGE BURNISHER Palpitations EXTENDED HOLTER Routine 07/13/2024 Palpitations XR MAMMO JULIUS BILAT SCREEN Routine 05/20/2024 9:20 AM CDT Encounter for screening mammogram for malignant neoplasm of breast HPV HIGH RISK Routine 02/16/2024 10:00 AM CDT COLONOSCOPY SCREENING Routine 06/06/2023 8:45 AM CDT Screening for colon cancer LC HIV-1/O/2, 4TH GENERATION Routine 12/24/2022 9:42 AM CDT Encounter for screening for HIV LC HCV ANTIBODY RFX TO QUANT PCR Routine 12/24/2022 9:42 AM CDT Need for hepatitis C screening test LC LIPID PANEL AND CHOL/HDL RATIO Routine 09/23/2022 9:00 AM EDGE BURNISHER Screening cholesterol level from Last 3 Months or Most Recently Relevant to Health Maintenance Results * TSH (09/10/2024 8:07 AM EDGE BURNISHER) Only the most recent of2 resultswithin the time period is included. TSH 3.55 mIU/L [facility] Comment: Reference Range > or = 20 Years 0.40-4.50 Ranges First trimester 0.26-2.66 Second trimester 0.55-2.73 Third trimester 0.43-2.91 Blood BLOOD SPECIMEN / Unknown 09/10/2024 8:07 AM EDGE BURNISHER 09/10/2024 8:07 AM EDGE BURNISHER Joan OJEDA CHEMISTRY Final R esult Performing Organization Address [facility] Co de Phone Number [facility] [address] [place] [address], [place] [phone] [facility] [address] [place] [address] * SCAN-EVENT MONITOR (07/17/2024 12:00 AM EDGE BURNISHER) us Scanner OTHER Final Result * T4,FREE (07/13/2024 11:48 AM EDGE BURNISHER) T4, FREE 0.9 0.8 - 1.8 ng/dL [facility] Blood BLOOD SPECIMEN / Unknown 07/13/2024 11:48 AM EDGE BURNISHER 07/13/2024 11:49 AM EDGE BURNISHER Narrative [facility] - 07/14/2024 4:23 AM EDGE BURNISHER FASTING:NO FASTING: NO Joan OJEDA CHEMISTRY Final R esult Performing Organization Address City/[facility]/ZIP Co de Phone Number [facility] [address] [place] [address], [place] [phone] [facility] [address] [place] [address] * EXTENDED HOLTER (07/13/2024) 07/13/2024 Narrative Ivan Bahena MD - 08/02/2024 12:00 AM EDGE BURNISHER Agree with Findings. Please see scan document for full report. Signed By Ivan Bahena MD Procedure Note Ivan Bahena MD - 08/02/2024 Agree with Findings. Please see scan document for full report. Signed By Ivan Bahena MD us Joan OJEDA CARDIAC SERVICES ORD Ed ited Result - Final * XR MAMMO JULIUS BILAT SCREEN (05/20/2024 9:20 AM CDT) Anatomical Region Laterality Modality BREASTS, Breast Left, Breast Right Bilateral Mammography Impressions 05/20/2024 2:58 PM CDT There is no radiographic evidence for malignancy. Recommend annual mammograms. MAMMOGRAM ASSESSMENT: ACR 1 Negative PATIENTS: You will also receive a letter with your examination results in an easy to read format. If you have questions about your results, please [...] care provider. XR MAMMO JULIUS BILAT SCREEN [[id number]] CLINICAL HISTORY: This is an asymptomatic 43 y.o. patient. INDICATION FOR EXAM: Mammogram Screening. TECHNIQUE: CC & MLO views were obtained. This study was evaluated with the assistance of Computer-Aided Detection. Breast Tomosynthesis was used in interpretation. COMPARISON FILM: Yes 12/17/22 [facility] 12/17/21 [facility] FINDINGS: The breasts are heterogeneously dense, which may obscure small masses. There are no dominant masses, suspicious micro calcifications or areas of architectural distortion. Joan OJEDA MAMMO Final R esult * HPV HIGH RISK (02/16/2024 10:00 AM CDT) TYPE 16 Negative Negative 02/19/2024 2:39 PM CDT [facility] TYPE 18 Negative Negative 02/19/2024 2:39 PM CDT [facility] OTHER HIGH RISK TYPES Negative Negative 02/19/2024 2:39 PM CDT [facility] Other (Cervical) 02/16/2024 10:00 AM CDT 02/17/2024 10:10 AM CDT Narrative [facility] - 02/19/2024 2:39 PM CDT HPV types 16, 18, 31, 33, 35, 39, 45, 51, 52, 56, 58, 59, 66 and 68 DNA were undetectable or below the pre-set threshold. Methodology: Krystal Asad 4800 HPV Test [facility] Aby Wheeler MD MICROBIOLOGY Final Result [facility] [address] [place] [address], * COLONOSCOPY (06/06/2023 9:23 AM CDT) 06/06/2023 9:23 AM CDT Narrative Transcriptions Michael Kaplan MD - 06/06/2023 9:55 AM CDT Patient Name: Liliana Sal Procedure Date: 06/06/2023 Gender: Female Date of : 1980 Admit Type: Outpatient Procedure: Colonoscopy Proceduralist: Michael Kaplan MD , Pilar Calderon RN (Nurse), Geneva Hdez (Nurse) Referring MD: [...] adequate candidate for conscious sedation. The PCF-H190L [id number] was passed through the anus and advanced [...] 9:23 AM Procedure Code(s): --- Professional --- 64261, Colonoscopy, flexible; diagnostic, including collection of specimen(s) bybrushing or washing, when performed (separateprocedure) Diagnosis Code(s): --- Professional --- Z12.11, Encounter for screening formalignant neoplasm of colon CPT copyright 2021 [employer]. All rights reserved. The codes documented in this report are preliminary and upon drier feeder reviewmay be revised to meet current compliance requirements. Scope In: 9:34:37 AM Scope Withdrawal Time 0 hours 6 minutes 6 seconds Scope Out: 9:48:17 AM us Michael Kaplan MD PROCEDURE ORD Final Res ult * LC HCV ANTIBODY RFX TO QUANT PCR (12/24/2022 9:42 AM CDT) Pathologist [facility] [place] HCV Ab Non Reactive Non Reactive 12/26/2022 2:[address] [facility] ([facility]) Blood BLOOD SPECIMEN / Unknown Venipuncture / Unknown 12/24/2022 9:42 AM CDT 12/24/2022 9:44 AM CDT Narrative [facility] ([facility]) - 12/26/2022 2:08 PM CDT Performed at: [address] [place] [id number] Prep Cook: Alfonso Brennan MD, Phone: [phone] us Shelia [facility] LABORAT[facility] Final Resu lt [facility] ([facility]) [address] [place] [id number], [place] * LC HIV-1/O/2, 4TH GENERATION (12/24/2022 9:42 AM CDT) Pathologist [facility] HIV Scr 4th Gen Non Reactive Non Reactive 12/26/2022 8:[address] [facility] ([facility]) Comment: HIV Negative HIV-1/HIV-2 antibodies and HIV-1 p24 antigen were NOT detected. There is no laboratory evidence of HIV infection. Blood BLOOD SPECIMEN / Unknown Venipuncture / Unknown 12/24/2022 9:42 AM CDT 12/24/2022 9:44 AM CDT Narrative [facility] ([facility]) - 12/26/2022 8:37 AM CDT Performed at: [address] [place] [address] [employer] [facility] [place], [place] [id number] Prep Cook: Alfonso Brennan MD, Phone: [phone] us Shelia [facility] LABORAT[facility] Final Resu lt [facility] ([facility]) [facility] [id number], * (ABNORMAL) LC LIPID PANEL AND CHOL/HDL RATIO (09/23/2022 9:00 AM EDGE BURNISHER) Pathologist [facility] Cholesterol, Total 252(H) 100 - 199 mg/dL 09/27/2022 12:06 AM [facility] TEST[facility] ([facility]) Triglycerides 124 0 - 149 mg/dL 09/27/2022 12:06 AM [facility] ([facility]) HDL Cholesterol 69 >39 mg/dL 12:06 AM [facility] ([facility]) VLDL Cholesterol Travis 22 5 - 40 mg/dL 09/27/2022 12:06 AM [facility] ([facility]) LDL Chol Calc ([facility]) 161(H) 0 - 99 mg/dL 09/27/2022 12:06 AM [facility] ([facility]) T. Chol/HDL Ratio 3.7 0.0 - 4.4 ratio 09/27/2022 12:06 AM [facility] ([facility]) Comment: T. Chol/HDL Ratio Men Women 1/2 Avg.Risk 3.4 3.3 Avg.Risk 5.0 4.4 2X Avg.Risk 9.6 7.1 3X Avg.Risk 23.4 11.0 Blood BLOOD SPECIMEN / Unknown Venipuncture / Unknown 09/23/2022 9:00 AM EDGE BURNISHER 09/23/2022 9:00 AM EDGE BURNISHER Narrative [facility] ([facility]) - 09/27/2022 12:06 AM EDGE BURNISHER Performed at: 01 - [address] [id number] Prep Cook: Alfonso Brennan MD, Phone: [phone] us Joan OJEDA SEND OUTS Final R esult [facility] ([facility]) [address] [place] [address], from Last 3 Months or Most Recently Relevant to Health Maintenance Insurance [facility] Care Teams Rider Ticket Worker Relationship Specialty Start Date End Date Joan Mccoy [place] [address] PCP - General Family Practice 01/18/13
[2024-09-20] MEDS: EPINEPHrine 1 MG in SODIUM CHLORIDE IRRIG SOLUTION 3,000 ML 9003 MG IRRIGATION ×2 (07:00→07:20)
--- NOTE | 2024-09-20 07:22 | W.PM.H&PU ---
History & Physical Update History & Physical Update H&P Reviewed and patient assessed: No changes noted
[2024-09-20] MEDS: SODIUM CHLORIDE 0.9 % (FLUSH) 10 ML SYRINGE IVF (07:30)
[2024-09-20] MEDS: 0.9 % SODIUM CHLORIDE 500 ML 500 ML 100 ML IV ×2 (07:30→11:45)
[2024-09-20] MEDS: CEFAZOLIN 2 GM in 0.9 % SODIUM CHLORIDE Mini-bag 100 ML IVPB (08:20)
--- NOTE | 2024-09-20 08:53 | P.ANES_ITS ---
Anesthesia Charges Start Date/Time Anesthesia Start Date: 09/20/24 Anesthesia Start Time: 08:00 Stop Date/Time Anesthesia Stop Date: 09/20/24 Anesthesia Stop Time: 09:30 Coding CPT Codes CPT Codes: ANESTH SURGERY OF SHOULDER - 67354 ([id number]) P2 - PATIENT W/MILD SYST DISEASE, QK - GLASS BULB MACHINE ADJUSTER 2-4 CNCRNT ANES PROC, QX - RN X RAY SVC W/ MD MED DIRECTION
--- NOTE | 2024-09-20 08:53 | W.ANESCHARGE ---
Anesthesia Charges Start Date/Time Anesthesia Start Date: 09/20/24 Anesthesia Start Time: 08:00 Stop Date/Time Anesthesia Stop Date: 09/20/24 Anesthesia Stop Time: 09:30 Coding CPT Codes CPT Codes: ANESTH SURGERY OF SHOULDER - 41176 ([id number]) P2 - PATIENT W/MILD SYST DISEASE, QK - CAFETERIA TEAM LEADER 2-4 CNCRNT ANES PROC, QX - FOOD ANALYST SVC W/ MD MED DIRECTION
--- NOTE | 2024-09-20 09:15 | P.ORPRC_ITS ---
Procedure Note Date of procedure: 09/20/24 Procedure: PREOPERATIVE DIAGNOSES: 1. Right shoulder type 2 slap tear POSTOPERATIVE DIAGNOSES: 1. Right shoulder type 2 slap tear NAME OF OPERATION: 1. Right shoulder arthroscopic long head of the biceps tenodesis 2. Right shoulder arthroscopic limited glenohumeral debridement including debridement of labral tissue, biceps stump, and rotator cuff tissue. SURGEON: Matty Nolen MD LABOR TRAINING MANAGER: Jaxon Cain PA-C. Of note, a skilled executive staff assistant was critical for this case to aide in patient positioning, suture manipulation, arm positioning, instrument positioning, and closure. ANESTHESIA: General plus preoperative supraclavicular block. EBL: 25 mL IMPLANTS: Arthrex 4.75 mm BioComposite SwiveLock suture anchor (x1); COMPLICATIONS: None evident INDICATIONS: The patient is a pleasant, 44-year-old female who has experienced right shoulder pain that has been increasing in recent time. Physical exam and imaging were consistent with a long head of the biceps SLAP tear. Unfortunately, nonoperative management has been inadequate at relieving her pain, thus indication and recommendation were made for surgery. FINDINGS: Exam under anesthesia revealed stable shoulder with excellent range of motion. The diagnostic arthroscopy revealed healthy chondral surfaces of the glenohumeral joint. The Subscapularis tendon was minimally torn from the far upper border deep surface. The long head of the biceps tendon was torn with a type 2 slap tear. The superior rotator cuff tendon was found to be intact and strong. The labrum was torn consistent with type 2 slap tear. The anterior, inferior, and posteroinferior labrum were otherwise intact. No loose bodies were identified within the pouch or subscapularis recess. PROCEDURE: Following a thorough discussion of risks, benefits, and alternatives, consent was obtained and the right shoulder was marked. The patient was brought to the operating room and placed supine on the operating table. Induction of anesthesia was completed after preoperative supraclavicular block was administered in preop holding. Appropriate time out was performed identifying proper patient, site, and procedure. 2 g IV Ancef was administered within 1 hour of incision preoperatively. The right upper extremity was prepped and draped in the appropriate sterile fashion using ChloraPrep prep. This was after the patient was positioned in the beach chair with their head in neutral alignment and all bony prominences well padded. The shoulder was insufflated with 20mL of normal saline via an 18g spinal needle from a posterior approach. An 11 blade skin incision allowed a b kalin trochar to be inserted and diagnostic arthroscopy to be performed with the findings as noted above. An anterior portal was established with an outside in technique. This allowed the probe to be inserted and confirm the diagnostic arthroscopic findings. A passport cannula was inserted anteriorly in the anterosuperolateral portal. Thereafter, the biceps was captured with a FiberLink and a loop intact technique. The biceps was then released from its origin. It was externalized through this anterior portal. The suture was reattached further distal which would be consistent with high in the groove kind of biceps tenodesis location. The remaining biceps stump, superior labrum, and small amount of the superior surface subscapularis was debrided with the torpedo shaver. The biceps groove was prepared with a combination of torpedo shaver, Goldsmith cautery, and rasp. The bicipital groove location was identified based on where sutures were high in the groove. This was punched, tapped, and 4.75 mm BioComposite SwiveLock suture anchor placed securing the biceps tendon after it had been captured with the loop intact technique with 4 locking suture throws. This was visualized best from the subacromial space with a lateral portal which also aided in confirmation of biceps tenodesis. The shoulder was placed through range of motion and found to be stable. The biceps tendon was re-probed and found to be stable. Instruments were removed. Excess fluid was drained, closure performed with 4-0 nylon. Dressings were applied. Sling was applied. The patient was awoken from anesthesia and transferred to the PACU in stable condition. A skilled executive staff assistant was critical for this case to aid in patient positioning, limb positioning, skill to manipulate arthroscopic instruments and camera, suture management, patient safety, and closure. PLAN: 1. Elbow, forearm, wrist and digit range of motion as tolerated. 2. Encouraged ice. 3. Oxycodone for pain as needed. 4. Sling at all times except for ROM and showering. 5. Follow up with PA visit in 1-2 weeks for wound check. Initiate physical therapy immediately for passive range of motion. Initiate active assisted range of motion at 2 weeks. May do pendulums now.
--- NOTE | 2024-09-20 09:32 | P.ANES_ITS ---
Anesthesia Charges Start Date/Time Anesthesia Start Date: 09/20/24 Anesthesia Start Time: 08:00 Stop Date/Time Anesthesia Stop Date: 09/20/24 Anesthesia Stop Time: 09:30 Coding CPT Codes CPT Codes: ANESTH SURGERY OF SHOULDER - 04546 ([id number]) P2 - PATIENT W/MILD SYST DISEASE, QK - EDUCATIONAL ASSISTANT TEACHER 2-4 CNCRNT ANES PROC, QX - BARREL RAISER SVC W/ MD MED DIRECTION
--- NOTE | 2024-09-20 09:32 | W.ANESCHARGE ---
Anesthesia Charges Start Date/Time Anesthesia Start Date: 09/20/24 Anesthesia Start Time: 08:00 Stop Date/Time Anesthesia Stop Date: 09/20/24 Anesthesia Stop Time: 09:30 Coding CPT Codes CPT Codes: ANESTH SURGERY OF SHOULDER - 50877 ([id number]) P2 - PATIENT W/MILD SYST DISEASE, QK - CRAYON PAINTER 2-4 CNCRNT ANES PROC, QX - SEAMSTRESS FITTER SVC W/ MD MED DIRECTION
[2024-09-20] MEDS: fentaNYL 100 MCG/2 ML inj 50 MCG IVP (09:43)
[2024-09-20] MEDS: ONDANSETRON 2 MG/ML inj 4 MG IVP (09:51)
[2024-09-20] MEDS: METOCLOPRAMIDE HCL 5 MG/ML INJ 10 MG IVP (10:06)
--- NOTE | 2024-09-20 10:39 | SUR.PHASEI ---
patient met discharge criteria per anesthesia
--- NOTE | 2024-09-20 10:48 | SUR.PHASEII ---
pt reports feeling nauseated, declines cool washcloth and aromatherapy patch. Offered ice chips and water. in room. Ice applied to right shoulder. dressing c/d/i
[2024-09-20] MEDS: ACETAMINOPHEN 500 MG TABLET 1000 MG PO (12:53)
[2024-09-20] MEDS: hydrOXYzine pamoate 25 MG CAPSULE PO (12:53)
--- NOTE | 2024-09-20 15:08 | SUR.PHASEII ---
Pt tolerated crackers and sprite. Right arm in sling. Ice pack applied to shoulder. Reports pain 5/10, Tylenol given at time of discharge. Pt reports nausea off and on. Wheelchair out to car.
== END 2024-09-20 12:53 | disposition home or self-care (01) ==
LOC: OR 06:42
PROVIDERS: PCP Physician Assistant Medical; Visit Provider Orthopaedic Surgery Sports Medicine
PROC: (CPT 29805; principal; 2024-09-20 07:45)
DX: S43.431A Superior glenoid labrum lesion of right shoulder, initial encounter (principal)
CPT/HCPCS: 29828; 29822; 01630; A9270; C1713; J0171; J0330; J0690; J1100; J2250; J2371; J2405; J2704; J2710; J2765; J3010; J3490; J7030; L3670

== ENCOUNTER 2025-02-17 09:35 | Outpatient (CLI) | payer BC, SELFPAY | END 2025-02-17 09:36 | disposition home or self-care (01) | PROVIDERS: PCP Physician Assistant Medical; Visit Provider Obstetrics & Gynecology | DX: R53.83 Other fatigue (principal) | CPT/HCPCS: 82306; 84443 ==